=== PATIENT | male | born 1995 | race Caucasian/White ===

== ENCOUNTER 2020-09-15 18:32 | Emergency (ER) | payer OTHER, MEDICAID, SELFPAY ==
[2020-09-15] VITALS (9 sets, daily range): BP systolic 115–142; BP diastolic 76–92; PULSE 56–78; RESP 14; TEMP 37; O2SAT 97–100; BMI 33.3
--- NOTE | 2020-09-15 18:48 | ED.HA ---
HPI - Headache General Chief Complaint: Headache Stated Complaint: pressure behind left eye Time Seen by Provider: 09/15/20 18:48 History of Present Illness HPI Narrative: 25-year-old otherwise healthy gentleman presents with 48 hours of left-sided headache focus behind his left eye radiating down to his left neck associated with nausea. Not responsive to Sudafed, Mucinex, Tylenol, ibuprofen. Does not have a history of migraine headache. He does note the lytes are a bit brighter but not complaining of sounds being louder or smells being more intense. He reports no fevers and does not describe the headache is worsening if he changes position or bends forward. He has no chest pain, palpitations, vomiting although he does have bit of nausea. No abdominal pain or diarrhea. He does not typically have headaches. Related Data Home Medications Medication Instructions Recorded Confirmed No Known Home Medications 06/14/20 09/15/20 Allergies Allergy/AdvReac Type Severity Reaction Status Date / Time No Known Drug Allergies Allergy Verified 09/15/20 18:44 Review of Systems Review of Systems Narrative: Remainder of review of systems including constitutional, ENT, cardiovascular, respiratory, GI, , musculoskeletal, skin, neurologic and psychiatric systems reviewed and are unremarkable except as noted in HPI. Patient History Medical History Well adult exam (Acute) Social History Smoking Status: Never smoker alcohol intake: current (5 drinks a year ) Smoking Status: Never smoker Exam Narrative Exam Narrative: General: Healthy appearing, in mild distress secondary to headache. Able to give a complete and coherent history. Well-nourished well-developed HEENT: Moist mucous membranes, normal sclera on the right, left mildly injected with with reactive pupils bilaterally. No skin changes or abnormalities into the scalp. Neck: No JVD, supple Respiratory: Lungs are clear to auscultation, no wheezing no rales no rhonchi. Full and symmetrical air movement Cardiac: Regular rate and rhythm no murmurs no bruits Abdomen: Soft nontender good bowel tones, no flank pain Skin: Warm and dry, no rashes Neurologic: Grossly neurologically intact with no obvious asymmetries or abnormalities Extremities: No trauma, well perfused Psych: Cooperative, appropriate insight and affect Initial Vital Signs Initial Vital Signs: Vital Signs Temperature 98.6 F 09/15/20 18:40 Pulse Rate 75 09/15/20 18:40 Respiratory Rate 14 09/15/20 18:40 Blood Pressure 142/80 H 09/15/20 18:40 Pulse Oximetry 100 09/15/20 18:40 Course Orders Ordered: ED Orders 09/15/20 19:57 CT head/brain wo con Stat 09/15/20 20:12 Complete Blood Count AUTO DIFF Stat Comprehensive Metabolic Panel Stat Discontinued Medications Ketorolac Tromethamine (Toradol) 15 mg IV NOW ONE Stop: 09/15/20 19:58 Last Admin: 09/15/20 20:27 Dose: 15 mg Documented by: STERLING Ondansetron HCl (Zofran Odt) 4 mg SL NOW ONE Stop: 09/15/20 18:56 Last Admin: 09/15/20 19:18 Dose: 4 mg Documented by: STERLING Sumatriptan Succinate (Imitrex) 6 mg SUBCUT NOW ONE Stop: 09/15/20 18:56 Last Admin: 09/15/20 19:17 Dose: 6 mg Documented by: STERLING Vital Signs Vital signs: Vital Signs - 8 hr 09/15/20 18:40 09/15/20 18:43 09/15/20 19:20 Temperature 98.6 F Pulse Rate 75 72 72 Respiratory Rate 14 Blood Pressure 142/80 H 142/80 H 127/77 Pulse Oximetry 100 99 98 09/15/20 19:30 09/15/20 20:00 09/15/20 20:27 Temperature Pulse Rate 56 L 78 64 Respiratory Rate Blood Pressure 130/76 127/84 129/78 Pulse Oximetry 98 98 98 09/15/20 20:30 09/15/20 21:00 09/15/20 21:01 Temperature Pulse Rate 59 L 70 68 Respiratory Rate Blood Pressure 135/80 115/92 H Pulse Oximetry 98 97 97 MDM - Headache Medical Records Attestation: I reviewed the patient's medical records. Lab Data Attestation: I reviewed the patient's lab results. Result diagrams: 09/15/20 20:12 09/15/20 20:12 Labs: Lab Results 09/15/20 09/15/20 Range/Units 20:12 20:12 WBC 6.8 (4.5-11.0) X10^3/uL RBC 5.09 (4.5-5.9) X10^6/uL Hgb 15.0 (13.5-17.5) g/dL Hct 44.0 (41-53) % MCV 86.3 (80-100) fL MCH 29.5 (26-34) PG MCHC 34.1 (30-36) % RDW 12.9 (11.6-14.8) % Plt Count 127 L (150-400) X10^3/uL Neut % (Auto) 58.2 (50-75) % Lymph % (Auto) 31.0 (25-40) % [facility] % (Auto) 8.6 (3-14) % Eos % (Auto) 1.4 L (2-4) % Baso % (Auto) 0.8 (0-2) % Neut # (Auto) 4000 (2903-1253) /uL Lymph # (Auto) 2100 (8701-8325) /uL [facility] [place] [facility] # (Auto) 600 (0-900) /uL Eos # (Auto) 100 (0-450) /uL Baso # (Auto) 100 (0-100) /uL Sodium 140 (137-145) mmol/L Potassium 4.3 (3.4-5.1) mmol/L Chloride 104 (98-107) mmol/L Carbon Dioxide 31 (22-32) mmol/L BUN 17 (9-20) mg/dL Creatinine 0.95 (0.66-1.25) mg/dL Estimated GFR > 60.0 (>60) mL/min BUN/Creatinine Ratio 17.9 (6-22) Glucose 100 (70-100) mg/dL Calcium 9.6 (8.4-10.2) mg/dL Total Bilirubin 0.5 (0.2-1.3) mg/dL AST 26 (17-59) IU/L ALT 28 (<50) IU/L Alkaline Phosphatase 73 (38-126) U/L Total Protein 7.9 (6.3-8.2) g/dL Albumin 4.6 (3.5-5.0) g/dL Globulin 3.3 (1.7-4.1) g/dL Albumin/Globulin Ratio 1.4 (1.0-2.8) [facility] Narrative Medical decision making narrative: 25-year-old gentleman presents with 48 hours of headache that may be a migraine variant without fevers, sinus congestion or other upper respiratory symptoms sinusitis is far less likely however and ethmoid sinusitis could certainly present like this. Initially we tried Zofran ODT and Imitrex subcutaneous. It did not influence his pain at all. IV was then started, blood work done fluids Toradol administered and CT scan ordered. Labs and CT scan are unremarkable. No intracranial hemorrhage tumors masses and no acute sinusitis. No evidence of significant infection appreciated on lab work. Patient is improved after fluids Toradol. Reviewed all normal findings with him. He is safe for home discharge. Discharge Plan Departure Patient Disposition: Home Clinical Impression: Headache Qualifiers: Headache type: unspecified Headache chronicity pattern: acute headache Intractability: not intractable Qualified Code(s): R51.9 - Headache, unspecified Instructions: DI for Headache Activity Restrictions/Additional Instructions: Thank you for coming in today Your headache did not seem to change with migraine medicine treatment. Blood work and CT scan do not suggest any acute infections, tumors, masses or sinusitis. There is also no suggestion of meningitis. The area behind your eyeball also looks normal and healthy. Your headache did improve slightly with IV Toradol (similar to ibuprofen) and fluid. It is safe for you to go home. Using 400 mg of ibuprofen (2 [id number] pills) and 1 Tylenol every 6 hours can be very helpful in controlling pain. Please try to stay as hydrated as possible. If you have new or changing symptoms please feel free to return to the emergency department for further evaluation. I wish you the best Prescriptions: No Action No Known Home Medications RF: 0 Referrals: Tom Coronado, [Primary Care Provider] -
[2020-09-15] MEDS: SUMAtriptan 6 MG/0.5 ML VIAL SUBCUT (19:17)
[2020-09-15] MEDS: ONDANSETRON 4 MG ODT SL (19:18)
--- NOTE | 2020-09-15 19:57 | DI.CT.S_ITS ---
PROCEDURE: CT HEAD/BRAIN WO CON INDICATIONS: New severe Headache x 2 days TECHNIQUE: Noncontrast 4.5 mm thick angled axial sections acquired from the foramen magnum to the vertex, with coronal and sagittal reformats. For radiation dose reduction, the following was used: automated exposure control, adjustment of mA and/or kV according to patient size. COMPARISON: None. FINDINGS: Image quality: Excellent. CSF spaces: Basal cisterns are patent. No extra-axial fluid collections. Ventricles are normal in size and shape. Brain: No midline shift. No intracranial masses or hemorrhage. Carvalho-white matter interface is normal. Skull and face: Calvarium and visualized facial bones are intact, without suspicious lesions. Sinuses: Visualized sinuses and mastoids are clear. IMPRESSION: No CT evidence of acute intracranial pathology. Dictated by: Bernard Mtz M.D. on 09/15/2020 at 20:28 Approved by: Bernard Mtz M.D. on 09/15/2020 at 20:29
[2020-09-15 20:19] LABS: Add Manual Diff / Slide Review NO; Basophils Absolute Auto 100 /uL (0-100); Basophils Percent Auto 0.8 % (0-2); Eosinophils Absolute Auto 100 /uL (0-450); Eosinophils Percent Auto 1.4 % (2-4); Lymphocytes Absolute Auto 2100 /uL (1100-4500); Mean Corpuscular HGB Conc 34.1 % (30-36); Mean Corpuscular Hemoglobin 29.5 PG (26-34); Mean Corpuscular Volume 86.3 fL (80-100); Monocytes Absolute Auto 600 /uL (0-900); Monocytes Percent Auto 8.6 % (3-14); Neutrophils Absolute Auto 4000 /uL (1500-7000); Neutrophils Percent Auto 58.2 % (50-75); Platelet Count 127 X10^3/uL (150-400); Red Blood Cell Count 5.09 X10^6/uL (4.5-5.9); Red Cell Distribution Width 12.9 % (11.6-14.8); White Blood Cell Count 6.8 X10^3/uL (4.5-11.0)
[2020-09-15] MEDS: KETOROLAC 60 MG/2 ML VIAL 15 MG IV (20:27)
[2020-09-15 20:32] LABS: Alanine Aminotransferase 28 IU/L (<50); Albumin 4.6 g/dL (3.5-5.0); Albumin Globulin Ratio 1.4 (1.0-2.8); Alkaline Phosphatase 73 U/L (38-126); Aspartate Aminotransferase 26 IU/L (17-59); BUN Creatinine Ratio 17.9 (6-22); Bilirubin Total 0.5 mg/dL (0.2-1.3); Blood Urea Nitrogen 17 mg/dL (9-20); Calcium 9.6 mg/dL (8.4-10.2); Carbon Dioxide 31 mmol/L (22-32); Chloride 104 mmol/L (98-107); Estimated Glomerular Filt Rate > 60.0 mL/min (>60); Globulin 3.3 g/dL (1.7-4.1); Glucose 100 mg/dL (70-100); HEMOLYSIS 17 (0-50); Potassium 4.3 mmol/L (3.4-5.1); Sodium 140 mmol/L (137-145); Total Protein 7.9 g/dL (6.3-8.2)
== END 2020-09-15 21:23 | disposition home or self-care (01) ==
PROVIDERS: Emergency Provider Emergency Medicine; PCP Family Medicine
DX: R51.9 Headache, unspecified (principal); R11.0 Nausea
CPT/HCPCS: 36415; 70450; 80053; 85025; 96372; 96374; 99284; J1885; J3030